=== PATIENT | female | born 1995 | race American Indian/Alaskan Native ===

== ENCOUNTER 2016-11-05 15:08 | Emergency (ER) | payer SELFPAY ==
--- NOTE | 2016-11-05 15:48 | Emergency Department Report ---
Stated Complaint: PNEUMONIA Time Seen by Provider: 11/05/16 15:45 - HPI History of Present Illness: PT states she was on cruise ship and she was dx with PNA. PT states she was told to go to the ED for treatment once she returned to - [facility] Review of Systems: + rib pain + sob + cough - productive - Exam Vital Signs: Vital Signs 11/05/16 15:44 Temperature 98.9 F Pulse Rate 93 H Respiratory 20 Rate Blood Pressure 109/73 O2 Sat by Pulse 99 Oximetry MSE screening note: Focused history and physical exam performed. Due to findings the following was ordered: xr, labs ED Disposition for MSE Condition: Stable
[2016-11-05 16:18] LABS: Basophils % (Auto) 0.5 % (0.0-1.8); Eosinophils % (Auto) 0.9 % (0.0-4.3); Hematocrit 36.9 % (30.3-42.9); Hemoglobin 12.7 gm/dl (10.1-14.3); Mean Corpuscular HGB Conc 35 % (30-34); Mean Corpuscular Hemoglobin 30 pg (28-32); Mean Corpuscular Volume 88 fl (79-97); Platelet Count 362 K/mm3 (140-440); Red Blood Count 4.18 M/mm3 (3.65-5.03); Red Cell Distribution Width 13.1 % (13.2-15.2); White Blood Count 11.6 K/mm3 (4.5-11.0)
[2016-11-05 16:23] LABS: Anion Gap 17 mmol/L; Blood Urea Nitrogen 7 mg/dL (7-17); Calcium 9.3 mg/dL (8.4-10.2); Carbon Dioxide 28 mmol/L (22-30); Chloride 97.4 mmol/L (98-107); Glucose 93 mg/dL (65-100); Potassium 3.8 mmol/L (3.6-5.0); Sodium 139 mmol/L (137-145)
--- NOTE | 2016-11-05 16:52 | XRay Report ---
CHEST 2 VIEWS INDICATION: Cough, fever, chest pain. COMPARISON: None similar at this institution. FINDINGS: PA and lateral chest radiographs demonstrate left lower lung pneumonia obscuring the left hemidiaphragm and the cardiac apex. Clear remainder lungs and visualized cardiomediastinal silhouette. Intact bones. Some extrinsic artifact possible. CONCLUSION: Left lower lung pneumonia, as described. Thank you for the opportunity to participate in this patient's care.
[2016-11-05 22:03] VITALS: BP 116/78
== END 2016-11-06 00:15 | disposition left against medical advice (07) ==
LOC: ED 15:08
DX: J18.9 Pneumonia, unspecified organism (principal); Z53.21 Procedure and treatment not carried out due to patient leaving prior to being seen by health care provider
CPT/HCPCS: 36415; 71020; 80048; 84703; 85025